=== PATIENT | male | born 1990 | race Caucasian/White ===

== ENCOUNTER 2019-02-19 19:22 | Emergency (ER) | payer OTHER ==
[2019-02-19 19:27] VITALS: BP 147/83; PULSE 65; TEMP 97.4; BMI 30.1
--- NOTE | 2019-02-19 22:55 | PDOC ---
*Physical Exam - Vital Signs Last Vital Signs Temp Pulse Resp BP Pulse Ox 97.4 F L 65 18 147/83 99 02/19/19 19:24 02/19/19 19:24 02/19/19 19:24 02/19/19 19:24 02/19/19 19:24 ED Treatment Course - LABORATORY CBC & Chemistry Diagram: 02/20/19 00:29 02/20/19 00:29 Medical Decision Making - Medical Decision Making 02/19/19 22:55 Patient seen by the advanced practice provider under my direct supervision. Ancillary testing reviewed as necessary. I agree with plan as outlined by the advanced practice provider. Discharge - Discharge Information Problems reviewed: Yes Clinical Impression/Diagnosis: Chest pain Qualifiers: Chest pain type: unspecified Qualified Code(s): R07.9 - Chest pain, unspecified Disposition: HOME - Follow up/Referral - Patient Discharge Instructions Patient Printed Discharge Instructions: DI for Chest Pain Additional Instructions: it is important that you follow up with a primary care provider. your work up here was negative for chest pain. Additional Instructions: * Please call your personal physician to report your Emergency Department visit and to report your progress, if any. * If there is no improvement in symptoms in 2 days call your physician. * Return to the Emergency Department for any worsening symptoms. - Post Discharge Activity Work/Back to School Note: Back to Work
--- NOTE | 2019-02-19 23:07 | PDOC ---
History of Present Illness - General Chief Complaint: Chest Pain Stated Complaint: CHEST PAIN/ABD PAIN Time Seen by Provider: 02/19/19 22:43 History Source: Patient - History of Present Illness Initial Comments: 02/19/19 23:08 29 year old male c/o midsternal chest pain and generalized pain patient reports that pain has been ongoing for the last 3 weeks, denies Nausea, vomiting, patient reports palpitations and panicked. patient reports that he has stressors related to work, family is in [place] and he misses family. Past History - Past Medical History Allergies/Adverse Reactions: Allergies Allergy/AdvReac Type Severity Reaction Status Date / Time No Known Allergies Allergy Verified 02/19/19 19:27 COPD: No - Psycho Social/Smoking Cessation Hx Smoking History: Never smoked Review of Systems - Review of Systems Able to Perform ROS?: Yes Is the patient limited Uzbek proficient: No Constitutional: No: Symptoms Reported, See HPI, Chills, Diaphoresis, Fever, Loss of Appetite, Malaise, Night Sweats, Weakness, Weight Stable, Unintentional Wgt. Loss, Unexplained wgt Loss, Other Respiratory: No: Symptoms reported, See HPI, Cough, Orthopnea, Shortness of Breath, SOB with Exertion, SOB at Rest, Stridor, Wheezing, Productive cough, Hemoptysis, Other Cardiac (ROS): Yes: Chest Pain. No: Symptoms Reported, See HPI, Edema, Irregular Heart Rate, Lightheadedness, Palpitations, Syncope, Chest Tightness, Other ABD/GI: Yes: Abdominal cramping. No: Symptoms Reported, See HPI, Abdominal Distended, Abd. Pain w/ defecation, Blood Streaked Bowels, Constipated, Diarrhea , Difficulty Swallowing, Nausea, Poor Appetite, Poor Fluid Intake, Rectal Bleeding, Vomiting, Indigestion, Tarry Stools, Other *Physical Exam - Vital Signs Last Vital Signs Temp Pulse Resp BP Pulse Ox 97.4 F L 65 18 147/83 99 02/19/19 19:24 02/19/19 19:24 02/19/19 19:24 02/19/19 19:24 02/19/19 19:24 - Physical Exam General Appearance: Yes: Appropriately Dressed Respiratory/Chest: positive: Lungs Clear, Normal Breath Sounds Cardiovascular: positive: Regular Rhythm, Regular Rate. negative: Tachycardia Gastrointestinal/Abdominal: positive: Normal Bowel Sounds, Soft Integumentary: positive: Normal Color, Dry, Warm Neurologic: positive: Fully Oriented, Alert, Normal Mood/Affect Heart Score/ECG Review - History History: Slightly suspicious - Age Age: </= 45 - Risk Factors Based on the list above the patient has:: No risk factors known - Troponin Troponin: </= normal limit - ECG Intrepretation Rhythm: Regular Rhythm ED Treatment Course - LABORATORY CBC & Chemistry Diagram: 02/20/19 00:29 02/20/19 00:29 - ADDITIONAL ORDERS Additional order review: Laboratory Results 02/20/19 02/20/19 00:29 00:29 Sodium 139 Potassium 3.8 Chloride 104 Carbon Dioxide 26 Anion Gap 8 BUN 13.1 Creatinine 0.7 Est GFR (CKD-EPI)AfAm 147.81 Est GFR (CKD-EPI)NonAf 127.53 Random Glucose 95 Calcium 9.6 Total Bilirubin 0.7 AST 23 ALT 38 Alkaline Phosphatase 97 Creatine Kinase 126 Troponin I < 0.02 Total Protein 8.1 Albumin 4.7 02/20/19 00:29 RBC 4.91 MCV 83.9 MCHC 33.0 RDW 12.2 MPV 8.8 Neutrophils % 47.3 Lymphocytes % 41.5 H Monocytes % 8.8 Eosinophils % 1.9 Basophils % 0.5 - RADIOLOGY Radiology Studies Ordered: Category Date Time Status CHEST PA & LAT [RAD] Stat Radiology 02/19/19 23:16 Taken Medical Decision Making - Medical Decision Making A: chest pain likely anxiety related. P: labs EKG cardiac enzymes 02/19/19 23:40 Perc score : 0 patient given [facility] info to follow up. Discharge - Discharge Information Problems reviewed: Yes Clinical Impression/Diagnosis: Chest pain Qualifiers: Chest pain type: unspecified Qualified Code(s): R07.9 - Chest pain, unspecified Disposition: HOME - Follow up/Referral - Patient Discharge Instructions Patient Printed Discharge Instructions: DI for Chest Pain Additional Instructions: it is important that you follow up with a primary care provider. your work up here was negative for chest pain. Additional Instructions: * Please call your personal physician to report your Emergency Department visit and to report your progress, if any. * If there is no improvement in symptoms in 2 days call your physician. * Return to the Emergency Department for any worsening symptoms. - Post Discharge Activity Work/Back to School Note: Back to Work
[2019-02-20 01:20] LABS: BASO % 0.5 % (0-2.0); EOS % 1.9 % (0-4.5); HEMATOCRIT 41.2 % (35.4-49); HEMOGLOBIN 13.6 GM/dL (11.7-16.9); LYMPH % 41.5 % (8-40); MCH 27.7 pg (25.7-33.7); MEAN CELL VOLUME 83.9 fl (80-96); MEAN PLT VOLUME 8.8 fl (7.5-11.1); MONO % 8.8 % (3.8-10.2); NEUT % 47.3 % (42.8-82.8); PLATELET COUNT 294 K/MM3 (134-434); RBC 4.91 M/mm3 (4.00-5.60); RDW 12.2 % (11.9-15.9)
[2019-02-20 01:44] LABS: ALBUMIN 4.7 g/dl (3.4-5.0); BILIRUBIN,TOTAL 0.7 mg/dL (0.2-1); BLOOD UREA NITROGEN 13.1 mg/dL (7-18); CALCIUM 9.6 mg/dL (8.5-10.1); CREATININE 0.7 mg/dL (0.55-1.3); POTASSIUM 3.8 mmol/L (3.5-5.1); TOT PROT 8.1 g/dl (6.4-8.2)
--- NOTE | 2019-02-20 12:06 | EKG ---
Test Reason : Blood Pressure : / mmHG Vent. Rate : 062 BPM Atrial Rate : 062 BPM P-R Int : 156 ms QRS Dur : 108 ms QT Int : 388 ms P-R-T Axes : 058 034 004 degrees QTc Int : 393 ms NORMAL SINUS RHYTHM NORMAL ECG NO PREVIOUS ECGS AVAILABLE Confirmed by Kyle Logan ([id number]) on 02/20/2019 12:05:35 PM Referred By: Confirmed By:Kyle Logan
== END 2019-02-20 02:57 | disposition home or self-care (01) ==
LOC: JER 19:22
DX: R07.9 Chest pain, unspecified (principal)
CPT/HCPCS: 36415; 71046-TC-FY; 80053; 82550; 84484; 85025; 93005; 93010; 99283-25